=== PATIENT | male | born 1985 | race Caucasian/White ===

== ENCOUNTER 2023-07-20 10:26 | Emergency (ER) | payer OTHER, SELFPAY ==
--- NOTE | 2023-07-20 10:32 | ED.GENADULT ---
HPI - General Adult General Chief complaint: Back Pain/Injury Stated complaint: SCIATICA PAIN Time Seen by Provider: 07/20/23 11:39 Source: patient and RN notes reviewed Mode of arrival: ambulatory Limitations: no limitations History of Present Illness HPI narrative: 38-year-old male presents to the [facility] with complaints of right low back/buttock pain. Pain radiates down the back and lateral aspect of right leg. patient describes it as sciatic pain. Had a history of sciatic about 6 months ago per patient, states it feels pretty much the same. Pain is worse with changing positions. Unable to reproduce pain. No erythema, ecchymosis noted. Denies trauma. Denies abdominal pain. No loss retention of bowel or bladder. Walks with a steady gait. Denies any numbness or tingling in extremities. Onset (ago): day(s) Treatments prior to arrival: none Related Data Allergies Allergy/AdvReac Type Severity Reaction Status Date / Time No Known Allergies Allergy Verified 07/20/23 11:11 Review of Systems Review of Systems: All systems reviewed & are unremarkable except as noted in HPI and below Constitutional: Constitutional: Reports no additional constitutional complaints Eyes: Eyes: Reports no additional eye complaints ENT: Reports system reviewed and no additional complaints, except as documented Cardiovascular: Cardiovascular: Reports no additional cardiovascular complaints, Denies chest pain and Denies dyspnea Respiratory: Respiratory: Reports no additional respiratory complaints, Denies chest congestion, Denies cough and Denies dyspnea Gastrointestinal: Gastrointestinal: Reports no additional gastrointestinal complaints, Denies abdominal pain, Denies nausea and Denies vomiting Musculoskeletal: Musculoskeletal: Reports as per HPI and Reports back pain Integumentary/Breasts: Skin/Breast: Reports system reviewed and no additional complaints, except as docu Neurologic: Reports system reviewed and no additional complaints, except as documented Psychiatric: Psychiatric: Reports no additional psychiatric complaints Allergic/Immunologic: Allergic/Immunologic: Reports no additional allergic/immunologic complaints PMFSH Comments At the time of my signature, I reviewed and agree with the nursing past medical, surgical, social, and family history. There is no relevant family history pertinent to the patient complaint. Exam Const: General: cooperative, healthy appearing, comfortable, no acute distress, well developed, alert and well nourished Nutritional Appearance: well nourished Orientation/consciousness: patient oriented x3 Limitations: no limitations HENMT: Head: normal to inspection Ears: hearing grossly normal bilaterally and external ears normal Face/Nose/Sinus: Normal external nose present, Normal nares present, Normal nasal mucous membranes and turbinates present, normal facial exam and face symmetric Face and sinus: normal facial exam and face symmetric Eyes: General: appearance normal, both eyes and all related structures Alignment and Position: alignment normal Periorbital: periorbital findings normal Pupils: Equal, round and reactive pupils present EOM: EOMs intact bilaterally Neck: Neck: normal visual inspection, full ROM, no lymphadenopathy and no meningeal signs Chest: Chest palpation & inspection: normal inspection of the chest Resp: Effort & Inspection: normal respiratory effort and able to speak in complete sentences Auscultation: clear to auscultation bilaterally, no crackles, no rales, no rhonchi and no wheezes Cardio: Rate: regular rate Rhythm: regular rhythm GI: GI Palp: No abdominal tenderness : General: Yes no CVA tenderness Back/Spine/Pelvis: Back: no CVA tenderness, No erythema, No ecchymosis and No back tenderness Cervical Spine: cervical ROM normal Thoracic/Lumbar Spine: No thoracic spinal tenderness and No lumbar spinal tenderness Pelvis: no pain with anterior-posterior compression a
[2023-07-20 11:13] VITALS: BP 118/89; PULSE 71; RESP 16; TEMP 36.8; O2SAT 100
== END 2023-07-20 11:53 | disposition home or self-care (01) ==
PROVIDERS: Emergency Provider Nurse Practitioner
DX: M54.31 Sciatica, right side (principal)
CPT/HCPCS: 99213; G0463

== ENCOUNTER 2024-11-18 10:08 | Emergency (ER) | payer OTHER, SELFPAY ==
[2024-11-18 10:14] VITALS: BP 124/86; PULSE 73; RESP 16; TEMP 36.4; O2SAT 100
--- NOTE | 2024-11-18 10:30 | ED_ITS ---
HPI - Back Pain/Injury General Chief Complaint: Back Pain/Injury Stated Complaint: Lower Back Pain Source: patient Mode of arrival: ambulatory Limitations: no limitations History of Present Illness HPI Narrative: Patient is a 39 year old male who presents to the clinic with complaints of right hip pain that extends down into his right thigh. He has been taking aspirin over the counter for pain. Denies any injury or numbness. Related Data Allergies Allergy/AdvReac Type Severity Reaction Status Date / Time No Known Allergies Allergy Verified 11/18/24 10:16 Review of Systems Review of Systems: CONSTITUTIONAL: Denies body aches, fever, chills EYES: Denies visual changes CARDIOVASCULAR: Denies chest pain, palpitations, or edema. RESPIRATORY: Denies cough or dyspnea. GASTROINTESTINAL: Denies abdominal pain, nausea, vomiting, or diarrhea. SKIN: Denies rash, itching, or wounds. MUSCULOSKELETAL: reports right sided back pain. NEUROLOGIC: Denies headache, numbness, or weakness. All systems reviewed & are unremarkable except as noted in HPI and below PMFSH Comments At time of signature, I have reviewed and agree with nursing past medical, surgical, social and family history unless otherwise noted. Please see nursing chart for further information. There is no relevant family history pertinent to the presenting complaint. Exam Narrative: GENERAL: Well-appearing, well-nourished, and in no acute distress. HEAD: Normocephalic, atraumatic. EYES: ?conjunctivae clear NECK: Supple. full ROM CHEST: Speaks in full sentences. No respiratory distress. HEART: Regular rate and rhythm. Normal and equal peripheral pulses. MUSC: ?No Vertebral point tenderness. Right sided paraspinal tenderness with palpation that extends into right thigh. BLEs with normal strength and sensation, normal range of motion, but endorses pain with movement. No edema or ecchymosis. No open wounds, ?skin tenting, ?or obvious deformity; alignment normal, ?pulse palpable and equal bilaterally, skin warm, dry, pink. Capillary refill less than 3 seconds. ?Gait steady. SKIN: Warm, dry, no rash. NEURO: Alert and oriented x3.? Course Course Level of Care: Express Care Visit Vital Signs Vital signs: Vital Signs Temperature 97.6 F 11/18/24 10:14 Pulse Rate 73 11/18/24 10:14 Respiratory Rate 16 11/18/24 10:14 Blood Pressure 124/86 11/18/24 10:14 Pulse Oximetry 100 11/18/24 10:14 Oxygen Delivery Room Air 11/18/24 10:14 Temperature 97.6 F 11/18/24 10:14 Pulse Rate 73 11/18/24 10:14 Respiratory Rate 16 11/18/24 10:14 Blood Pressure 124/86 11/18/24 10:14 Pulse Oximetry 100 11/18/24 10:14 Oxygen Delivery Room Air 11/18/24 10:14 reviewed MDM - Back Pain/Injury MDM Narrative Medical decision making narrative: Discussed physical exam findings. Steroid and muscle relaxer given. Advised supportive measures and signs/symptoms to go to the ER. Pt is appropriate for outpt treatment and follow up. Differential Diagnosis Differential diagnosis: Likely lumbar radiculopathy, sciatica and strain of lumbar region Critical Care Time Critical Care Time Critical Care Time: No Discharge Plan Discharge Clinical Impression: Sciatica Qualifiers: Laterality: right Qualified Code(s): M54.31 - Sciatica, right side Patient Disposition: Home Condition: Stable Instructions: Sciatica (ED) Additional Instructions: Rest. Avoid pushing, pulling, lifting or anything that worsens the symptoms Take muscle relaxers as prescribed. Take steroid as prescribed. You may take Tylenol for pain. Alternate ice/heat to the site. Lidocaine or salon pas pain patch or use pain cream like icy/hot or biofreeze. Follow up with your primary care provider as needed in 1 week Go to the ER for worsening symptoms or concerns Patient Language: Cambodian Prescriptions: New baclofen 10 mg tablet 10 mg PO TID Qty: 30 0RF prednisone 20 mg tablet See Rx Instructions .Route .COMPLEX Qty: 9 0RF Rx Instructions: 40mg x 3 days, 20mg x 3 days Follow-up/Referrals: PHYSICIAN,VENDING MACHINE OPERATOR [Primary Care Provider] - Stand Alone Forms: Work/School Release IP Time of Disposition: 10:38
== END 2024-11-18 10:44 | disposition home or self-care (01) ==
DX: M54.31 Sciatica, right side (principal)
CPT/HCPCS: 99213; G0463

== ENCOUNTER 2025-01-05 08:01 | Emergency (ER) | payer OTHER, SELFPAY ==
[2025-01-05 08:08] VITALS: BP 141/85; PULSE 83; RESP 16; TEMP 36.4; O2SAT 99
--- NOTE | 2025-01-05 08:20 | ED.BACK ---
HPI - Back Pain/Injury General Chief Complaint: Back Pain/Injury Stated Complaint: R Leg Pain Time Seen by Provider: 01/05/25 08:07 Source: patient and RN notes reviewed Mode of arrival: ambulatory Limitations: no limitations History of Present Illness HPI Narrative: Patient presents today complaining of a one-week history of right low back pain radiating to the buttock and posterior right leg. Symptoms have become more sharp since yesterday. He has been taking ibuprofen and has gone to the chiropractor twice over the last week and states symptoms have only very slightly improved. Pain increases with movement and sitting. Pain decreases with standing. Patient had very similar symptoms approximately 6 weeks ago and was seen here at [facility] and prescribed some baclofen and short course of prednisone which patient states improved his symptoms but does not feel that his symptoms fully resolved. He does not currently have a PCP. Related Data Allergies Allergy/AdvReac Type Severity Reaction Status Date / Time No Known Allergies Allergy Verified 01/05/25 08:05 COUNTS INCLUDE 234 BEDS AT THE [facility] Comments At time of signature, I have reviewed and agree with nursing past medical, surgical, social and family history unless otherwise noted. Please see nursing chart for further information. There is no relevant family history pertinent to the presenting complaint Exam Narrative: GENERAL: Well-appearing, well-nourished, and in no acute distress. HEAD: Normocephalic, atraumatic. EYES: EOMI. No redness or drainage. Conjunctivae normal. ENT: Mucous membranes pink and moist. NECK: Normal AROM. CHEST: No respiratory distress. MUSCULOSKELETAL: No bony tenderness of the thoracic or lumbar spine. Mild right lower lumbar paraspinal muscle tenderness extending to the SI joint. Distal sensation intact bilaterally. Saddle sensation intact. Capillary refill normal. Pedal pulses normal. 5/5 strength in BLE. Normal bilateral patellar reflexes. EXTREMITIES: Normal range of motion. No edema. SKIN: Warm, dry, no rash. Capillary refill normal. Normal skin turgor. NEURO: No focal deficits. Alert and oriented x3. Gait steady. PSYCH: Normal affect. No signs of depression or anxiety. Course Course Level of Care: [facility] Visit Vital Signs Vital signs: Vital Signs Temperature 97.6 F 01/05/25 08:08 Pulse Rate 83 01/05/25 08:08 Respiratory Rate 16 01/05/25 08:08 Blood Pressure 141/85 H 01/05/25 08:08 Pulse Oximetry 99 01/05/25 08:08 Temperature 97.6 F 01/05/25 08:08 Pulse Rate 83 01/05/25 08:08 Respiratory Rate 16 01/05/25 08:08 Blood Pressure 141/85 H 01/05/25 08:08 Pulse Oximetry 99 01/05/25 08:08 Reviewed MDM - Back Pain/Injury MDM Narrative Medical decision making narrative: 39-year-old male patient presents today with a one-week history of right low back pain radiating to the posterior right leg. Pain only slightly improved with ibuprofen and chiropractor. This is 2nd episode this type of pain in the last 2 months. Upon exam patient has tenderness to the right lower lumbar musculature and right buttock. Neurovascularly intact. Vital signs stable. Dexamethasone injection given. He will also be treated with prescriptions of Flexeril and prednisone. Recommend initiating care with a PCP and inquiring about physical therapy. Patient agrees with plan. Strict ED precautions given. Differential Diagnosis Differential diagnosis: Likely lumbar radiculopathy, sciatica and strain of lumbar region Critical Care Time Critical Care Time Critical Care Time: No Discharge Plan Discharge Clinical Impression: Acute right-sided back pain with sciatica Patient Disposition: Home Condition: Stable Instructions: Sciatica (ED) Additional Instructions: You have been given your 1st dose of steroids this morning. Please start the prednisone tomorrow and take as directed. Please start the Flexeril and take as prescribed. Do not drive within 8 hours of taking the Flexeril as it can make you drowsy. You may continue ibuprofen if needed. Please call the [facility] physician liaison line at [phone], and they can help you find a PCP. As discussed, if you develop any worsening symptoms such as numbness in your legs or genitalia, loss of bowel or bladder control, or significantly worse pain, please go to the ER immediately for further evaluation. Your blood pressure was elevated above 120/80 today at Urgent Care. This puts you above the threshold for follow up. Please schedule a followup visit with your personal physician as soon as possible, for further evaluation and treatment. Even blood pressure exceeding 120/80 may indicate pre-hypertension. Patient Language: Icelandic Prescriptions: New cyclobenzaprine 10 mg tablet 10 mg PO TID PRN (Reason: muscle spasm) Qty: 20 0RF prednisone 50 mg tablet 50 mg PO DAILY 5 Days Qty: 5 0RF Follow-up/Referrals: PHYSICIAN,INSPECTOR BALANCE WHEEL MOTION [Primary Care Provider] - Time of Disposition: 08:26
[2025-01-05] MEDS: dexAMETHasone SOD PHOS INJ 10 MG/ML 1 ML VIAL IM (08:26)
== END 2025-01-05 08:35 | disposition home or self-care (01) ==
PROVIDERS: Emergency Provider Nurse Practitioner
DX: M54.41 Lumbago with sciatica, right side (principal)
CPT/HCPCS: 96372; 99213; G0463; J1100

== ENCOUNTER 2025-01-09 03:27 | Emergency (ER) | payer OTHER, SELFPAY ==
[2025-01-09 03:28] VITALS: BP 146/92; PULSE 84; RESP 18; O2SAT 100
--- NOTE | 2025-01-09 05:50 | PC.NURSE ---
wet primer powder blender witnessed pt exit ED with steady gait. Pt name was called out to go back to a room but did not respond to call out. Pt left without being seen.
== END 2025-01-09 07:09 | disposition left against medical advice (07) ==
DX: R20.0 Anesthesia of skin (principal)
CPT/HCPCS: 99199